=== PATIENT | male | born 1980 | race American Indian/Alaskan Native ===

== ENCOUNTER 2022-04-27 09:49 | Inpatient (IN) | payer SELFPAY ==
[2022-04-27 10:58] LABS: Hematocrit 43.1 % (35.5-45.6); Mean Corpuscular HGB Conc 33 % (32-34); Mean Corpuscular Volume 85 fl (84-94); Platelet Count 383 K/mm3 (140-440); Red Blood Count 5.08 M/mm3 (3.65-5.03); Red Cell Distribution Width 13.3 % (13.2-15.2)
[2022-04-27 11:09] LABS: INR 0.96 (0.87-1.13)
--- NOTE | 2022-04-27 11:22 | Emergency Department Report ---
ED Abdominal Pain HPI - General Chief Complaint: Abdominal Pain Stated Complaint: ABD PAIN Time Seen by Provider: 04/27/22 11:20 Source: patient, EMS ( EMS documentation not available at time of chart dictation ), RN notes reviewed Mode of arrival: Stretcher Limitations: No Limitations - History of Present Illness Initial Comments: The patient was evaluated in the emergency department for symptoms described in the history of present illness. He/she was evaluated in the context of the global COVID-19 pandemic, which necessitated consideration that the patient might be at risk for infection with the virus that causes COVID-19. Institutional protocols and algorithms that pertain to the evaluation of patients at risk for COVID-19 are in a state of rapid change based on information released by regulatory bodies including the CDC and federal and s morin organizations. These policies and algorithms were followed during the patient's care in the emergency department. Please note that these policies, procedures and recommendations changed on a rapid basis. The patient is a 41-year-old gentleman with a distant history of testicular torsion, presenting to the ER today with a complaint of right lower quadrant pain that radiates to the back, and right-sided testicular pain and swelling. He has been having constant pain since , today is Thursday. He endorses mild nausea, no fever, no chills, no dysuria. He endorses high risk sexual behavior, and endorses multiple sexual partners, over the past 6 months, without condoms, all female, with oral, vaginal, and anal intercourse. He does not recall where he was treated for testicular torsion previously. He does not recall specifically what year he had testicular torsion. He has constant right lower quadrant pain flank pain and right testicular pain for the past 2 to 3 days. Pain increases with palpation. Decreases with rest and position. Denies additional injuries and complaints MD Complaint: abdominal pain, flank pain -: days(s) Location: RLQ, R flank Radiation: back Severity: moderate Consistency: constant Improves With: rest Worsens With: movement - Related Data Allergies Allergy/AdvReac Type Severity Reaction Status Date / Time No Known Allergies Allergy Unverified 04/27/22 13:44 ED Review of Systems ROS: Stated complaint: ABD PAIN Other details as noted in HPI Comment: All other systems reviewed and negative Gastrointestinal: abdominal pain, nausea Genitourinary: testicular pain. denies: dysuria Musculoskeletal: back pain ED Physical Exam - General Limitations: No Limitations General appearance: alert, obese - Head Head exam: Present: atraumatic, normocephalic - Eye Eye exam: Present: normal appearance, EOMI. Absent: nystagmus - ENT ENT exam: Present: normal exam, normal orophraynx, mucous membranes moist, normal external ear exam - Neck Neck exam: Present: normal inspection, full ROM. Absent: tenderness, meni ngismus - Respiratory Respiratory exam: Present: normal lung sounds bilaterally. Absent: respiratory distress, wheezes, rales, rhonchi, stridor, decreased breath sounds - Cardiovascular Cardiovascular Exam: Present: regular rate, normal rhythm, normal heart sounds. Absent: bradycardia, tachycardia, irregular rhythm, systolic murmur, diastolic murmur, rubs, gallop - GI/Abdominal GI/Abdominal exam: Present: soft. Absent: distended, tenderness, guarding, rebound, rigid, pulsatile mass - Rectal Rectal exam: Present: deferred - exam: Present: testicular tenderness, other (Right-sided testicle swollen. Right-sided testicle tender. Decreased cremasteric reflex noted in the right testicle. Left testicle with normal lie, normal axis, and appropriate cremasteric reflex). Absent: normal inspection - Extremities Exam Extremities exam: Present: normal inspection, full ROM, other (2+ pulses noted in the bilateral upper and lower extremities. There is no palpable cord. negative Homans sign. Muscular compartments are soft. The pelvis is stable.). Absent: pedal edema, calf tenderness - Back Exam Back exam: Present: normal inspection. Absent: tenderness, CVA tenderness (R), CVA tenderness (L), paraspinal tenderness, vertebral tenderness - Neurological Exam Neurological exam: Present: alert, oriented X3, normal gait, other (No facial droop. Tongue midline. Extraocular movements intact bilaterally. Facial sensation intact to light touch in V1, V2, V3 distribution bilaterally. 5 and a 5 strength in 4 extremities. Sensation intact to light touch in 4 extremit ies.). Absent: motor sensory deficit - Psychiatric Psychiatric exam: Present: normal affect, normal mood, anxious - Skin Skin exam: Present: warm, dry, intact, normal color. Absent: rash ED Course Vital Signs 04/27/22 04/27/22 13:51 13:55 Temperature 99.2 F Pulse Rate 77 Respiratory 17 Rate Blood Pressure 149/75 [Left] O2 Sat by Pulse 98 96 Oximetry - Reevaluation(s) Reevaluation #1: 04/27/22 11:38 Differential diagnosis, include but not limited to: Renal colic, appendicitis, testicular torsion, epididymitis, orchitis Assessment and plan: 41-year-old gentleman with a primary complaint of right testicular pain, right lower quadrant pain/flank pain that radiates to the back. Suspect testicular p athology primarily. Patient presents on day [address] patient on cardiac rehabilitation specialist, start n.p.o., start pain medication, nausea medication, laboratory studies pending, white blood cell count of 21,000 may be reactive, stress, or infectious in nature. Obtain CT scan abdomen pelvis, obtain stat testicular ultrasound. Discussed this plan of care with the patient. He is agreeable to the plan of care. Reassess. Reevaluation #2: 04/27/22 13:26 CT scan abdomen pelvis demonstrates acute uncomplicated retrocecal appendicitis. As per verbal report from blood bank technologist, no evidence of torsion is noted, simply hydrocele. Contacted general surgeon on-call, Dr. Silveira. Discussed the patient's history, physical, laboratory studies and imaging studies and clinical impression. She will follow in consultation. Hospital physician, Dr. Bowen, to accept patient and admit to the medical service. I discussed this recommendation with the patient, who is agreeable to this plan of care. Reevaluation #3: 04/27/22 13:59 Ultrasound shows no evidence of torsion. Patient has received antibiotics. Cover with doxycycline. Defer to the inpatient team to further manage, evaluate and treat orchitis. If this patient did not have appendicitis, I would discharge him with oral antibiotics for orchitis with hydrocele. - EJ/Peripheral Line Arm R Time Out Performed: Yes Indications: other (Physician placed to expedite initiation of care) Skin Cleansed in Sterile Fashion: Yes Size: 20 Dressing Placed: Tegaderm Patient Tolerated Procedure: well ED Medical Decision Making - Lab Data Result diagrams: 04/27/22 10:21 04/27/22 10:21 Lab Results 04/27/22 04/27/22 04/27/22 Range/Units 10:21 10:21 10:21 WBC 21.0 H (4.5-11.0) K/mm3 RBC 5.08 H (3.65-5.03) M/mm3 Hgb 14.0 (11.8-15.2) gm/dl Hct 43.1 (35.5-45.6) % MCV 85 (84-94) fl MCH 28 (28-32) pg MCHC 33 (32-34) % RDW 13.3 (13.2-15.2) % Plt Count 383 (140-440) K/mm3 Add Manual Diff Complete Total Counted 100 Seg Neuts % (Manual) 79.0 H (40.0-70.0) % Band Neutrophils % 0 % Lymphocytes % (Manual) 11.0 L (13.4-35.0) % Reactive Lymphs % (Man) 0 % Monocytes % (Manual) 9.0 H (0.0-7.3) % Eosinophils % (Manual) 1.0 (0.0-4.3) % Basophils % (Manual) 0 (0.0-1.8) % Metamyelocytes % 0 % Myelocytes % 0 % Promyelocytes % 0 % Blast Cells % 0 % Nucleated RBC % Not Reportable Seg Neutrophils # Man 16.6 H (1.8-7.7) K/mm3 Band Neutrophils # 0.0 K/mm3 Lymphocytes # (Manual) 2.3 (1.2-5.4) K/mm3 Abs React Lymphs (Man) 0.0 K/mm3 Monocytes # (Manual) 1.9 H (0.0-0.8) K/mm3 Eosinophils # (Manual) 0.2 (0.0-0.4) K/mm3 Basophils # (Manual) 0.0 (0.0-0.1) K/mm3 Metamyelocytes # 0.0 K/mm3 Myelocytes # 0.0 K/mm3 Promyelocytes # 0.0 K/mm3 Blast Cells # 0.0 K/mm3 WBC Morphology Not Reportable Hypersegmented Neuts Not Reportable Hyposegmented Neuts Not Reportable Hypogranular Neuts Not Reportable Smudge Cells Not Reportable Toxic Granulation Not Reportable Toxic Vacuolation Not Reportable Dohle Bodies Not Reportable Pelger-Huet Anomaly Not Reportable Jarod Rods Not Reportable Platelet Estimate Consistent w auto Clumped Platelets Not Reportable Plt Clumps, EDTA Not Reportable Large Platelets Not Reportable Giant Platelets Not Reportable Platelet Satelliting Not Reportable Plt Morphology Comment Not Reportable RBC Morphology Normal Dimorphic RBCs Not Reportable Polychromasia Not Reportable Hypochromasia Not Reportable Poikilocytosis Not Reportable Anisocytosis Not Reportable Microcytosis Not Reportable Macrocytosis Not Reportable Spherocytes Not Reportable Pappenheimer Bodies Not Reportable Sickle Cells Not Reportable Target Cells Not Reportable Tear Drop Cells Not Reportable Ovalocytes Not Reportable Helmet Cells Not Reportable Ch-Rudolph Bodies Not Reportable [place] Rings Not Reportable [place] Cells Not Reportable Bite Cells Not Reportable Crenated Cell Not Reportable Elliptocytes Not Reportable Acanthocytes (Spur) Not Reportable Rouleaux Not Reportable Hemoglobin C Crystals Not Reportable Schistocytes Not Reportable Malaria parasites Not Reportable Cain Bodies Not Reportable Hem Pathologist Commnt No PT 13.8 (12.2-14.9) Sec. INR 0.96 (0.87-1.13) Sodium 137 (137-145) mmol/L Potassium 4.3 (3.6-5.0) mmol/L Chloride 101.5 (98-107) mmol/L Carbon Dioxide 25 (22-30) mmol/L Anion Gap 15 mmol/L BUN 10 (9-20) mg/dL Creatinine 1.0 (0.8-1.3) mg/dL Estimated GFR > 60 ml/min BUN/Creatinine Ratio 10 % Glucose 101 H (75-100) mg/dL Calcium 9.8 (8.4-10.2) mg/dL Total Bilirubin 0.70 (0.1-1.2) mg/dL Direct Bilirubin < 0.2 (0-0.2) mg/dL Indirect Bilirubin 0.5 mg/dL AST 15 (5-40) units/L ALT 31 (7-56) units/L Alkaline Phosphatase 62 (35-129) units/L Total Protein 9.3 H (6.3-8.2) g/dL Albumin 4.2 (3.9-5) g/dL Albumin/Globulin Ratio 0.8 % Lipase 25 (13-60) units/L Urine Color (Yellow) Urine Turbidity (Clear) Urine pH (5.0-7.0) Ur Specific [place] (1.003-1.030) Urine Protein (Negative) mg/dL Urine Glucose (UA) (Negative) mg/dL Urine Ketones (Negative) mg/dL Urine Blood (Negative) Urine Nitrite (Negative) Urine Bilirubin (Negative) Urine Urobilinogen (<2.0) mg/dL Ur Leukocyte Esterase (Negative) Urine WBC (Auto) (0.0-6.0) /HPF Urine RBC (Auto) (0.0-6.0) /HPF U Epithel Cells (Auto) (0-13.0) /HPF Urine Mucus /HPF 04/27/22 Range/Units Unknown WBC (4.5-11.0) K/mm3 RBC (3.65-5.03) M/mm3 Hgb (11.8-15.2) gm/dl Hct (35.5-45.6) % MCV (84-94) fl MCH (28-32) pg MCHC (32-34) % RDW (13.2-15.2) % Plt Count (140-440) K/mm3 Add Manual Diff Total Counted Seg Neuts % (Manual) (40.0-70.0) % Band Neutrophils % % Lymphocytes % (Manual) (13.4-35.0) % Reactive Lymphs % (Man) % Monocytes % (Manual) (0.0-7.3) % Eosinophils % (Manual) (0.0-4.3) % Basophils % (Manual) (0.0-1.8) % Metamyelocytes % % Myelocytes % % Promyelocytes % % Blast Cells % % Nucleated RBC % Seg Neutrophils # Man (1.8-7.7) K/mm3 Band Neutrophils # K/mm3 Lymphocytes # (Manual) (1.2-5.4) K/mm3 Abs React Lymphs (Man) K/mm3 Monocytes # (Manual) (0.0-0.8) K/mm3 Eosinophils # (Manual) (0.0-0.4) K/mm3 Basophils # (Manual) (0.0-0.1) K/mm3 Metamyelocytes # K/mm3 Myelocytes # K/mm3 Promyelocytes # K/mm3 Blast Cells # K/mm3 WBC Morphology Hypersegmented Neuts Hyposegmented Neuts Hypogranular Neuts Smudge Cells Toxic Granulation Toxic Vacuolation Dohle Bodies Pelger-Huet Anomaly Jarod Rods Platelet Estimate Clumped Platelets Plt Clumps, EDTA Large Platelets Giant Platelets Platelet Satelliting Plt Morphology Comment RBC Morphology Dimorphic RBCs Polychromasia Hypochromasia Poikilocytosis Anisocytosis Microcytosis Macrocytosis Spherocytes Pappenheimer Bodies Sickle Cells Target Cells Tear Drop Cells Ovalocytes Helmet Cells Ch-Rudolph Bodies [place] Rings [place] Cells Bite Cells Crenated Cell Elliptocytes Acanthocytes (Spur) Rouleaux Hemoglobin C Crystals Schistocytes Malaria parasites Cain Bodies Hem Pathologist Commnt PT (12.2-14.9) Sec. INR (0.87-1.13) Sodium (137-145) mmol/L Potassium (3.6-5.0) mmol/L Chloride (98-107) mmol/L Carbon Dioxide (22-30) mmol/L Anion Gap mmol/L BUN (9-20) mg/dL Creatinine (0.8-1.3) mg/dL Estimated GFR ml/min BUN/Creatinine Ratio % Glucose (75-100) mg/dL Calcium (8.4-10.2) mg/dL Total Bilirubin (0.1-1.2) mg/dL Direct Bilirubin (0-0.2) mg/dL Indirect Bilirubin mg/dL AST (5-40) units/L ALT (7-56) units/L Alkaline Phosphatase (35-129) units/L Total Protein (6.3-8.2) g/dL Albumin (3.9-5) g/dL Albumin/Globulin Ratio % Lipase (13-60) units/L Urine Color Yellow (Yellow) Urine Turbidity Clear (Clear) Urine pH 8.0 H (5.0-7.0) Ur Specific [place] 1.021 (1.003-1.030) Urine Protein <15 mg/dl (Negative) mg/dL Urine Glucose (UA) Neg (Negative) mg/dL Urine Ketones Neg (Negative) mg/dL Urine Blood Neg (Negative) Urine Nitrite Neg (Negative) Urine Bilirubin Neg (Negative) Urine Urobilinogen < 2.0 (<2.0) mg/dL Ur Leukocyte Esterase Sm (Negative) Urine WBC (Auto) 29.0 H (0.0-6.0) /HPF Urine RBC (Auto) 6.0 (0.0-6.0) /HPF U Epithel Cells (Auto) 1.0 (0-13.0) /HPF Urine Mucus Few /HPF - Radiology Data Radiology results: pending, report reviewed, image reviewed CT ABDOMEN AND PELVIS WITH CONTRAST HISTORY: Acute right-sided abdominal pain. Pain for the past 2 days, history of testicular torsion COMPARISON: CT abdomen/pelvis and testicular ultrasound both from 06/14/2011 TECHNIQUE: CT images of the abdomen and pelvis were obtained following administration of intravenous contrast. All CT scans at this location are performed using CT dose reduction for ALARA by means of automated exposure control. CONTRAST: 100 ml of intravenous contrast administered. FINDINGS: Lungs/bones: Lung bases are clear. No acute osseous abnormality identified. Abdomen/pelvis: The liver is mildly enlarged with no focal mass. The gallbladder, spleen, pancreas, adrenals, kidneys, and proximal GI tract appear unremarkable. Prostate and urinary bladder unremarkable with no pelvic free fluid. No acute colonic abnormality identified. There is a retrocecal tubular structure which is fluid-filled and measures approximately 1.3 cm on image 123 of series 2. No significant surrounding stranding. There is mild mucosal enhancement. IMPRESSION: 1. Acute uncomplicated retrocecal appendicitis. Signer Name: Jeffrey Stroud MD Signed: 04/27/2022 11:35 AM Workstation Name: [facility] Scrotal Ultrasound HISTORY: right sided testicular pain hx of torsion. TECHNI QUE: Grayscale and color imaging performed. COMPARISON: None FINDINGS: Right testicle measures 2.9 x 2.6 x 4.1 cm and the left measures 4.5 x 2.3 x 3.4 cm. Normal testicular appearance with blood flow bilaterally, although there is hyperemia on the right. There is a moderate size hydrocele on the right. No hydrocele on the left. Each epididymis is normal with preserved blood flow. IMPRESSION: Right-sided testicular hyperemia may be seen with orchitis with moderate-sized reactive hydrocele. Signer Name: Jeffrey Stroud MD Signed: 04/27/2022 12:37 PM Workstation Name: [id number] Critical care attestation.: If time is entered above; I have spent that time in minutes in the direct care of this critically ill patient, excluding procedure time. ED Disposition Clinical Impression: Right lower quadrant abdominal pain, Right testicular pain, Acute appendicitis Disposition: 09 ADMITTED INPATIENT Is pt being admited?: Yes Does the pt Need Aspirin: No Condition: Good
[2022-04-27 11:49] LABS: Alanine Aminotransferase 31 units/L (7-56); Albumin 4.2 g/dL (3.9-5); BUN/Creatinine Ratio 10; Blood Urea Nitrogen 10 mg/dL (9-20); Calcium 9.8 mg/dL (8.4-10.2); Hemolysis Index 0
[2022-04-27 11:57] LABS: Bilirubin,Direct < 0.2 mg/dL (0-0.2)
[2022-04-27 12:17] LABS: Bilirubin,Urine NEG (Negative); Blood,Urine NEG (Negative); Color,Urine Yellow (Yellow); Mucus,Urine FEW /HPF; Protein,Urine <15 mg/dL mg/dL (Negative); Urobilinogen,Urine < 2.0 mg/dL (<2.0)
[2022-04-27 12:18] LABS: Basophils % (Manual) 0 % (0.0-1.8); Platelet Estimate Consistent w Auto; RBC Morphology Normal; Total Cells Counted 100
--- NOTE | 2022-04-27 12:39 | Cat Scan Report ---
CT ABDOMEN AND PELVIS WITH CONTRAST HISTORY: Acute right-sided abdominal pain. Pain for the past 2 days, history of testicular torsion COMPARISON: CT abdomen/pelvis and testicular ultrasound both from 06/14/2011 TECHNIQUE: CT images of the abdomen and pelvis were obtained following administration of intravenous contrast. All CT scans at this location are performed using CT dose reduction for ALARA by means of automated exposure control. CONTRAST: 100 ml of intravenous contrast administered. FINDINGS: Lungs/bones: Lung bases are clear. No acute osseous abnormality identified. Abdomen/pelvis: The liver is mildly enlarged with no focal mass. The gallbladder, spleen, pancreas, adrenals, kidneys, and proximal GI tract appear unremarkable. Prostate and urinary bladder unremarkable with no pelvic free fluid. No acute colonic abnormality pratik ntified. There is a retrocecal tubular structure which is fluid-filled and measures approximately 1.3 cm on image 123 of series 2. No significant surrounding stranding. There is mild mucosal enhancement . IMPRESSION: 1. Acute uncomplicated retrocecal appendicitis. Signer Name: Jeffrey Stroud MD Signed: 04/27/2022 12:35 PM Workstation Name: [id number]
[2022-04-27] MEDS ORDERED: oxyCODONE /ACETAMINOPHEN 5-325MG TAB PO PRN (13:37)
[2022-04-27] MEDS ORDERED: ALBUTEROL 2.5 MG/3 ML NEBU IH PRN (13:37)
[2022-04-27] MEDS ORDERED: ACETAMINOPHEN 325 MG TAB PO PRN ×3 (13:37→20:24)
--- NOTE | 2022-04-27 13:37 | History and Physical Report ---
History of Present Illness Chief complaint: My stomach has been hurting History of present illness: 41 YO Male with Obesity Hypoventilation Syndrome presents to ED for evaluation. Patient reports "my stomach has been hurting". Patient states that over the past 4 days he has experienced right-sided abdominal pain. Patient states that the pain is constant, progressively worsening, radiates to the back into the right testicle, 7/10, worsened with movement, relieved with nonmovement. EMS was notified and upon arrival the patient was found to be in distress and subsequently transported to [facility] for further care and evaluation of the aforementioned symptoms. The patient was seen and evaluated in the emergency department. All lab and imaging studies reviewed. Patient with CT scan of the abdomen and pelvis and was found to have acute appendicitis complicated by sepsis. Patient admitted to medical floor due to increased risk of worsening symptoms. Patient initiated on sepsis protocol. Surgical team consulted in ED. Patient taken urgently to the operating room. Patient denies fever, chills, chest pain, palpitation, adductive cough, skin rash, recent contact, known exposure to COVID-19. No prior admission for review. No medication listed at time of admission for reconciliation. Advanced care planning conducted in ED. Past History Past Medical History: other (See HPI) Past Surgical History: No surgical history, Other (Reviewed) Social history: single. denies: smoking, alcohol abuse, prescription drug abuse Family history: hypertension Medications and Allergies Allergies Allergy/AdvReac Type Severity Reaction Status Date / Time No Known Allergies Allergy Unverified 04/27/22 13:44 Active Meds: Active Medications Sodium Chloride (Nacl 0.9% 1000 Ml) 1,000 mls @ 999 mls/hr IV BOLUS ONE Stop: 04/27/22 12:20 Piperacillin Sod/Tazobactam Sod (Zosyn/Ns 4.5gm/100ml) 4.5 gm in 100 mls @ 200 mls/hr IV ONCE ONE; Protocol Stop: 04/27/22 13:13 Morphine Sulfate (Morphine 4 Mg/1 Ml Inj) 4 mg IV ONCE ONE Stop: 04/27/22 11:21 Ondansetron HCl (Ondansetron 4 Mg/2 Ml Inj) 4 mg IV ONCE ONE Stop: 04/27/22 11:21 Review of Systems Constitutional: no weight loss, no weight gain, no fever, no sweats Ears, nose, mouth and throat: no ear pain, no tinnitis, no nasal congestion, no sinus pressure Cardiovascular: no chest pain, no palpitations, no edema, no syncope Respiratory: no cough, no excessive sputum, no hemoptysis, no shortness of breath Gastrointestinal: abdominal pain Exam - Constitutional General appearance: Present: mild distress, obese - EENT Eyes: Present: PERRL ENT: hearing intact, clear oral mucosa - Neck Neck: Present: supple, normal ROM - Respiratory Respiratory effort: normal Respiratory: bilateral: CTA - Cardiovascular Heart Sounds: Present: S1 & S2. Absent: rub, click - Extremities Extremities: pulses symmetrical, No edema Peripheral Pulses: abnormal (Capillary refill greater than 3.5 seconds) - Abdominal General gastrointestinal: Present: soft, tender, non-distended, normal bowel sounds Localized gastrointestinal: tender: RLQ Male genitourinary: Present: scrotal edema - Integumentary Integumentary: Present: clear, warm, dry - Musculoskeletal Musculoskeletal: gait normal, strength equal bilaterally - Psychiatric Psychiatric: appropriate mood/affect, intact judgment & insight - Neurologic Neurologic: CNII-XII intact, moves all extremities Results - Labs CBC & Chem 7: 04/27/22 10:21 04/27/22 10:21 Labs: Abnormal lab results 04/27/22 04/27/22 04/27/22 Range/Units 10:21 10:21 Unknown WBC 21.0 H (4.5-11.0) K/mm3 RBC 5.08 H (3.65-5.03) M/mm3 Seg Neuts % (Manual) 79.0 H (40.0-70.0) % Lymphocytes % (Manual) 11.0 L (13.4-35.0) % Monocytes % (Manual) 9.0 H (0.0-7.3) % Seg Neutrophils # Man 16.6 H (1.8-7.7) K/mm3 Monocytes # (Manual) 1.9 H (0.0-0.8) K/mm3 Glucose 101 H (75-100) mg/dL Total Protein 9.3 H (6.3-8.2) g/dL Urine pH 8.0 H (5.0-7.0) Urine WBC (Auto) 29.0 H (0.0-6.0) /HPF Assessment and Plan - Patient Problems (1) Acute appendicitis Current Visit: Yes Status: Acute Plan to address problem: CT scan abdomen pelvis, serial abdominal exam, IV antibiotic therapy, surgery team consulted. Patient taken urgently to the operating room for surgical intervention. N.p.o., bowel rest, supportive care, pain control. (2) Sepsis Current Visit: Yes Status: Acute Plan to address problem: Sepsis protocol: IV fluid resuscitation therapy, IV antibiotic therapy, monitor urine output every shift, monitor fluid balance, serial lactic acid level, chest x-ray, urinalysis, IV antibiotic therapy. (3) Obesity hypoventilation syndrome Current Visit: Yes Status: Acute Plan to address problem: Balanced diet, increase physical activity discharge, outpatient pulmonary follow-up for sleep study. (4) DVT prophylaxis Current Visit: Yes Status: Acute Plan to address problem: SCD to bilateral lower extremities while in bed (5) Right testicular pain Current Visit: Yes Status: Acute Plan to address problem: Empiric IV antibiotic therapy for orchitis, supportive care, testicular ultrasound. (6) Advance care planning Current Visit: Yes Status: Acute Plan to address problem: Disease education conducted, care plan discussed, diagnoses discussed, prognosis discussed, patient is full code. Patient acknowledges understanding and agreement with care plan, +30 minutes. (7) Preventative health care Current Visit: Yes Status: Acute Plan to address problem: Patient counseled regarding balanced diet, increase physical activity at discharge, meal planning. Outpatient follow-up with primary care physician for all age and risk factor of appropriate screening test. Patient counseled regarding risk of HIV disease and infection. Patient counseled regarding safe sex practices. +30 minutes.
--- NOTE | 2022-04-27 13:41 | Ultrasound Report ---
Scrotal Ultrasound HISTORY: right sided testicular pain hx of torsion. TECHNIQUE: Grayscale and color imaging performed. COMPARISON: None FINDINGS: Right testicle measures 2.9 x 2.6 x 4.1 cm and the left measures 4.5 x 2.3 x 3.4 cm. Normal testicular appearance with blood flow bilaterally, although there is hyperemia on the right. There i s a moderate size hydrocele on the right. No hydrocele on the left. Each epididymis is normal with pr eserved blood flow. IMPRESSION: Right-sided testicular hyperemia may be seen with orchitis with moderate-sized reactive h ydrocele. Signer Name: Jeffrey Stroud MD Signed: 04/27/2022 1:37 PM Workstation Name: [id number]
[2022-04-27] MEDS ORDERED: HYDROmorphone 0.5 MG/0.5 ML INJ IV PRN ×3 (13:54→20:24)
[2022-04-27] MEDS ORDERED: MORPHINE 2 MG/1 ML INJ IV PRN (13:55)
[2022-04-27] MEDS ORDERED: DOXYCYCLINE 100 MG CAP PO ONE (13:58)
[2022-04-27] MEDS ORDERED: PIPERACIL/TAZOBACTA 4.5/NS 100 4.5 GM/100 ML VIAL IV ONE (14:00)
[2022-04-27] MEDS ORDERED: SODIUM CHLORIDE 0.9% 1000 ML 1,000 ML IV ONE (14:00)
[2022-04-27] MEDS ORDERED: MORPHINE 4 MG/1 ML INJ IV ONE (14:00)
[2022-04-27] MEDS ORDERED: ONDANSETRON 4 MG/2 ML INJ IV ONE (14:00)
[2022-04-27] MEDS: CEFEPIME/NS 2 GM/100 ML 2 GM/100 ML BAG IV SCH ×2 (14:24→21:09)
[2022-04-27] MEDS ORDERED: HYDROmorphone 1 MG/1 ML INJ ONE (14:46)
[2022-04-27] MEDS ORDERED: LIDOCAINE MPF (2%) 20 MG/1 ML VIAL 5 ML ONE (14:47)
[2022-04-27] MEDS ORDERED: propofoL 200 MG/20 ML VIAL IV ONE (14:47)
[2022-04-27] MEDS ORDERED: ROCURONIUM 50 MG/5 ML INJ IV ONE ×2 (14:49→15:40)
[2022-04-27] MEDS ORDERED: BUPIVACAINE/PF (0.5%) 5 MG/1 ML 30 ML VIAL INFILTRATI ONE ×2 (14:54→16:17)
[2022-04-27] MEDS ORDERED: LIDOCAINE (1%) 10 MG/1 ML VIAL 20 ML MDV ONE (14:54)
[2022-04-27] MEDS ORDERED: SODIUM CHLORIDE 0.9% 1000 ML IV SOLN IV ONE (15:00)
--- NOTE | 2022-04-27 15:09 | Anesthesia Day of Surgery ---
Anesthesia Day of Surgery - Day of Surgery Patient Examined: Yes Patient H&P Reviewed: Yes Patient is NPO: Yes
--- NOTE | 2022-04-27 15:09 | Anesthesia Consultation ---
Anesthesia Consult and Med Hx Date of service: 04/27/22 - Airway Anesthetic Teeth Evaluation: Good, Partials ROM Head & Neck: Adequate Mental/Hyoid Distance: Adequate Mallampati Class: Class III Intubation Access Assessment: Possibly Difficult - Pre-Operative Health Status ASA Pre-Surgery Classification: ASA2 Proposed Anesthetic Plan: General - Pulmonary Hx Respiratory Symptoms: No - Cardiovascular System Hx Hypertension: No (BP elevated in ED but no prior diagnosis or meds) - Endocrine Hx Renal Disease: No Hx Liver Disease: No Hx Insulin Dependent Diabetes: No Hx Thyroid Disease: No - Other Systems Hx Obesity: Yes (BMI 35) - Additional Comments Anesthesia Medical History Comments: No hx anesthetic complications.
[2022-04-27] MEDS ORDERED: ONDANSETRON 4 MG/2 ML INJ ONE (16:16)
[2022-04-27] MEDS ORDERED: NEOSTIGMINE 10MG/10 ML INJ MDV ONE (16:16)
[2022-04-27] MEDS ORDERED: KETOROLAC 30 MG/1 ML INJ ONE (16:16)
[2022-04-27] MEDS ORDERED: LIDOCAINE (1%) 10 MG/1 ML VIAL 20 ML MDV INFILTRATI ONE (16:17)
[2022-04-27] MEDS ORDERED: GLYCOPYRROLATE 0.4 MG/2 ML INJ ONE ×2 (16:17→16:24)
[2022-04-27] MEDS ORDERED: WATER FOR IRRIG STERILE 1,500 ML BOTTLE IR ONE (16:18)
--- NOTE | 2022-04-27 17:10 | Post Anesthesia Evaluation ---
- Post Anesthesia Evaluation Patient Participated: Yes Airway Patent: Yes Stable Respiratory Function: Yes Nausea/Vomiting: No Temp > 96.8F: Yes Pain Manageable: Yes Adequeate Hydration: Yes Anesthesia Complications: No
[2022-04-27] MEDS ORDERED: SODIUM CHLORIDE 0.9% 1000 ML 1,000 ML ONE (17:12)
--- NOTE | 2022-04-27 17:30 | Operative Report ---
Operative Report Operative Report: Date of Service: 04/27/2022 Primary Surgeon: Asa Silveira MD Procedure: Laparoscopic Appendectomy Anesthesia: GETA Pre-Operative Diagnosis: acute appendicitis Post-Operative Diagnosis: Same Indications for Procedure: 41-year-old male presents to the emergency room with 2 days of right lower quadrant pain with nausea and vomiting. Patient is CT scan that showed uncomplicated acute appendicitis. Patient signed informed consent for laparoscopic appendectomy. Description of Procedure(s): The patient was brought to the operating room and underwent general anesthesia after lower extremity SCD were placed. A benedict catheter was inserted under sterile conditions and the left arm was tucked gently at their side. The abdomen was prepped and draped in the standard fashion. IV antibiotics were given and a time out was performed. Using a veress needle via a stab incision in the umbilicus, the abdomen was insuflated to a pressure of 15mmHg. Using optivew technique, a 5mm trocar was placed just superior and to the left of the umbilicus. There was no gross injury noted to any intra-abdominal structures. After which working trocars were placed under direct visualization. A 12 mm trocar was placed in left mid abdomen, and a 5 mm trocar was inserted in the suprapubic area. The patient was placed in slight Trendelenburg position and tilted towards her left side. The cecum was identified and mobilized, as well as the terminal ileum. There was no gross purulent fluid. The appendix was noted to be retrocecal. The mesoappendix was transected with the LigaSure. The appendix was then taken at its base with a white load on a laparoscopic stapler. The staple line was inspected and found to be hemostatically sound and secure. The appendix was placed in Endo Catch bag. It was then retrieved via the 12 mm trocar. The fascia was then closed using a O-vicryl and a suture passer device. Trocars removed under direct visualization. The insufflation was then terminated. The skin incisions were closed using 4-0 Monocryl sutures. All the wounds dressed with dermabond. The patient tolerated the procedure well, was extubated and taken to the recovery room in satisfactory condition. Specimen: appendix Complications: none immediate EBl: <10ml Findings: Retrocecal appendix that was minimally inflamed.
--- NOTE | 2022-04-27 17:32 | Consultation ---
History of Present Illness Consult date: 04/27/22 Reason for consult: abdominal pain - History of present illness History of present illness: 5-year-old male presents to the emergency room with a 2-day history of right lower quadrant pain with nausea and vomiting. Patient says that he had a similar pain several years ago and was diagnosed with testicular torsion however that was ruled out with ultrasound. Patient is CT scan with findings consistent with uncomplicated acute appendicitis. Patient says his pain is 8 out of 10 and is radiating to his right groin and right back as well. Past History Past Medical History: other (testicular torsion) Past Surgical History: Other (bilateral hand surgery for traumatic events) Family history: no significant family history Medications and Allergies Allergies Allergy/AdvReac Type Severity Reaction Status Date / Time No Known Allergies Allergy Unverified 04/27/22 13:44 Active Meds: Active Medications Acetaminophen (Acetaminophen 325 Mg Tab) 650 mg PO Q4H PRN PRN Reason: Pain MILD(1-3)/Fever >100.5/SMITH Albuterol (Albuterol 2.5 Mg/3 Ml Nebu) 2.5 mg IH Q4H PRN PRN Reason: Shortness Of Breath Hydromorphone HCl (Hydromorphone 0.5 Mg/0.5 Ml Inj) 0.25 mg IV Q4H PRN PRN Reason: Pain, Severe (7-10) Hydromorphone HCl (Hydromorphone 0.5 Mg/0.5 Ml Inj) 0.5 mg IV Q10MIN PRN PRN Reason: Pain , Severe (7-10) Stop: 04/28/22 15:09 Cefepime HCl (Cefepime/Ns 2 Gm/100 Ml) 2 gm in 100 mls @ 200 mls/hr IV Q8H [facility]; Protocol Last Admin: 04/27/22 14:24 Dose: 200 mls/hr Morphine Sulfate (Morphine 2 Mg/1 Ml Inj) 2 mg IV Q4H PRN PRN Reason: Pain, Moderate (4-6) Ondansetron HCl (Ondansetron 4 Mg/2 Ml Inj) 4 mg IV Q8H PRN PRN Reason: Nausea And Vomiting Oxycodone/Acetaminophen (Oxycodone /Acetaminophen 5-325mg Tab) 1 tab PO Q6H PRN PRN Reason: Pain, Moderate (4-6) Sodium Chloride (Sodium Chloride 0.9% 10 Ml Flush Syringe) 10 ml IV BID ALEJANDRINA Sodium Chloride (Sodium Chloride 0.9% 10 Ml Flush Syringe) 10 ml IV PRN PRN PRN Reason: LINE FLUSH Review of Systems All systems: negative - Gastrointestinal abdominal pain, nausea, vomiting Exam Vital Signs Pulse Ox 98 04/27/22 13:51 - General physical appearance Positive: well developed, no distress, moderate pain - Eyes Positive: PERRL. Negative: icteric - ENT Positive: no hearing loss - Respiratory Positive: normal expansion, normal respiratory effort - Cardiovascular Heart Sounds: Present: S1 & S2 - Extremities Extremities: no ischemia - Abdomen Abdomen: Present: soft, other (Tender to deep palpation right lower quadrant). Absent: guarding, rigid Results - Labs 04/27/22 10:21 04/27/22 10:21 Abnormal lab results 04/27/22 04/27/22 04/27/22 Range/Units 10:21 10:21 Unknown WBC 21.0 H (4.5-11.0) K/mm3 RBC 5.08 H (3.65-5.03) M/mm3 Seg Neuts % (Manual) 79.0 H (40.0-70.0) % Lymphocytes % (Manual) 11.0 L (13.4-35.0) % Monocytes % (Manual) 9.0 H (0.0-7.3) % Seg Neutrophils # Man 16.6 H (1.8-7.7) K/mm3 Monocytes # (Manual) 1.9 H (0.0-0.8) K/mm3 Glucose 101 H (75-100) mg/dL Total Protein 9.3 H (6.3-8.2) g/dL Urine pH 8.0 H (5.0-7.0) Urine WBC (Auto) 29.0 H (0.0-6.0) /HPF Diabetes panel 04/27/22 Range/Units 10:21 Sodium 137 (137-145) mmol/L Potassium 4.3 (3.6-5.0) mmol/L Chloride 101.5 (98-107) mmol/L Carbon Dioxide 25 (22-30) mmol/L BUN 10 (9-20) mg/dL Creatinine 1.0 (0.8-1.3) mg/dL Glucose 101 H (75-100) mg/dL Calcium 9.8 (8.4-10.2) mg/dL AST 15 (5-40) units/L ALT 31 (7-56) units/L Alkaline Phosphatase 62 (35-129) units/L Total Protein 9.3 H (6.3-8.2) g/dL Albumin 4.2 (3.9-5) g/dL Calcium panel 04/27/22 Range/Units 10:21 Calcium 9.8 (8.4-10.2) mg/dL Albumin 4.2 (3.9-5) g/dL Pituitary panel 04/27/22 Range/Units 10:21 Sodium 137 (137-145) mmol/L Potassium 4.3 (3.6-5.0) mmol/L Chloride 101.5 (98-107) mmol/L Carbon Dioxide 25 (22-30) mmol/L BUN 10 (9-20) mg/dL Creatinine 1.0 (0.8-1.3) mg/dL Glucose 101 H (75-100) mg/dL Calcium 9.8 (8.4-10.2) mg/dL Adrenal panel 04/27/22 Range/Units 10:21 Sodium 137 (137-145) mmol/L Potassium 4.3 (3.6-5.0) mmol/L Chloride 101.5 (98-107) mmol/L Carbon Dioxide 25 (22-30) mmol/L BUN 10 (9-20) mg/dL Creatinine 1.0 (0.8-1.3) mg/dL Glucose 101 H (75-100) mg/dL Calcium 9.8 (8.4-10.2) mg/dL Total Bilirubin 0.70 (0.1-1.2) mg/dL AST 15 (5-40) units/L ALT 31 (7-56) units/L Alkaline Phosphatase 62 (35-129) units/L Total Protein 9.3 H (6.3-8.2) g/dL Albumin 4.2 (3.9-5) g/dL - Imaging CT scan - abdomen: report reviewed, image reviewed CT scan - pelvis: report reviewed, image reviewed Assessment and Plan 41-year-old male with right lower quadrant pain nausea and vomiting with work-up consistent with acute appendicitis. Patient is afebrile and stable with a white count of 21. Patient's pathology and both surgical and nonsurgical options were discussed with him. Patient expressed understanding and consented for laparoscopic appendectomy. Continue antibiotics and IV hydration.
[2022-04-27] MEDS ORDERED: ONDANSETRON 4 MG/2 ML INJ IV PRN (18:00)
[2022-04-27] MEDS: KETOROLAC 30 MG/1 ML INJ IV SCH (21:08)
[2022-04-28] MEDS: KETOROLAC 30 MG/1 ML INJ IV SCH ×4 (02:55→20:52)
[2022-04-28] MEDS: CEFEPIME/NS 2 GM/100 ML 2 GM/100 ML BAG IV SCH ×3 (05:12→22:34)
[2022-04-28 07:16] LABS: BUN/Creatinine Ratio 10; Blood Urea Nitrogen 12 mg/dL (9-20); Calcium 8.6 mg/dL (8.4-10.2); Hemolysis Index 4
[2022-04-28 07:18] LABS: Basophils # (Auto) 0.1 K/mm3 (0.0-0.1); Basophils % (Auto) 0.4 % (0.0-1.8); Eosinophils # (Auto) 0.1 K/mm3 (0.0-0.4); Eosinophils % (Auto) 1.1 % (0.0-4.3); Hematocrit 35.2 % (35.5-45.6); Hemoglobin 11.4 gm/dl (11.8-15.2); Lymphocytes # (Auto) 1.7 K/mm3 (1.2-5.4); Lymphocytes % (Auto) 13.3 % (13.4-35.0); Mean Corpuscular HGB Conc 33 % (32-34); Mean Corpuscular Volume 85 fl (84-94); Monocytes # (Auto) 0.7 K/mm3 (0.0-0.8); Monocytes % (Auto) 5.7 % (0.0-7.3); Platelet Count 296 K/mm3 (140-440); Red Blood Count 4.12 M/mm3 (3.65-5.03); Red Cell Distribution Width 13.1 % (13.2-15.2)
--- NOTE | 2022-04-28 12:05 | Progress Note ---
Assessment and Plan Assessment and plan: 41-year-old male presented to the emergency room with a 2-day history of right lower quadrant pain with nausea and vomiting. Patient's CT scan revealed uncomplicated acute appendicitis. The patient was admitted with diagnosis of sepsis and appendicitis. Sepsis. Patient meets criteria given leukocytosis, tachycardia and diagnosis of appendicitis Appendicitis 04/28/2022. Patient underwent laparoscopic appendectomy yesterday without complication. Patient has received IV antibiotics since admission. Initial blood cultures are negative. Patient reports having flatus but no bowel movement yet. Patient is tolerating clear liquid diet. Patient is attempting to ambulate in the room. Anticipate discharge later today or in a.m. History Interval history: No new issues overnight Hospitalist Physical - Constitutional Vitals: Temp Pulse Resp BP Pulse Ox 98.1 F 66 18 105/60 99 04/28/22 05:15 04/28/22 05:15 04/28/22 05:15 04/28/22 05:15 04/28/22 05:15 General appearance: Present: no acute distress, obese - EENT Eyes: Present: PERRL, EOM intact ENT: hearing intact, clear oral mucosa, dentition normal - Neck Neck: Present: supple, normal ROM - Respiratory Respiratory effort: normal Respiratory: bilateral: CTA - Cardiovascular Rhythm: regular Heart Sounds: Present: S1 & S2. Absent: gallop, rub - Extremities Extremities: no ischemia, No edema, Full ROM - Abdominal General gastrointestinal: soft, non-tender, non-distended, normal bowel sounds - Integumentary Integumentary: Present: clear, warm, dry - Neurologic Neurologic: CNII-XII intact, moves all extremities Results - Labs CBC & Chem 7: 04/28/22 06:40 04/28/22 06:40 Labs: Laboratory Last Values WBC 13.0 K/mm3 (4.5-11.0) H 04/28/22 06:40 RBC 4.12 M/mm3 (3.65-5.03) 04/28/22 06:40 Hgb 11.4 gm/dl (11.8-15.2) L 04/28/22 06:40 Hct 35.2 % (35.5-45.6) L D 04/28/22 06:40 MCV 85 fl (84-94) 04/28/22 06:40 MCH 28 pg (28-32) 04/28/22 06:40 MCHC 33 % (32-34) 04/28/22 06:40 RDW 13.1 % (13.2-15.2) L 04/28/22 06:40 Plt Count 296 K/mm3 (140-440) 04/28/22 06:40 Lymph % (Auto) 13.3 % (13.4-35.0) L 04/28/22 06:40 [place] % (Auto) 5.7 % (0.0-7.3) 04/28/22 06:40 Eos % (Auto) 1.1 % (0.0-4.3) 04/28/22 06:40 Baso % (Auto) 0.4 % (0.0-1.8) 04/28/22 06:40 Lymph # (Auto) 1.7 K/mm3 (1.2-5.4) 04/28/22 06:40 [place] # (Auto) 0.7 K/mm3 (0.0-0.8) 04/28/22 06:40 Eos # (Auto) 0.1 K/mm3 (0.0-0.4) 04/28/22 06:40 Baso # (Auto) 0.1 K/mm3 (0.0-0.1) 04/28/22 06:40 Add Manual Diff Complete 04/27/22 10:21 Total Counted 100 04/27/22 10:21 Seg Neutrophils % 79.5 % (40.0-70.0) H 04/28/22 06:40 Seg Neuts % (Manual) 79.0 % (40.0-70.0) H 04/27/22 10:21 Band Neutrophils % 0 % 04/27/22 10:21 Lymphocytes % (Manual) 11.0 % (13.4-35.0) L 04/27/22 10:21 Reactive Lymphs % (Man) 0 % 04/27/22 10:21 Monocytes % (Manual) 9.0 % (0.0-7.3) H 04/27/22 10:21 Eosinophils % (Manual) 1.0 % (0.0-4.3) 04/27/22 10:21 Basophils % (Manual) 0 % (0.0-1.8) 04/27/22 10:21 Metamyelocytes % 0 % 04/27/22 10:21 Myelocytes % 0 % 04/27/22 10:21 Promyelocytes % 0 % 04/27/22 10:21 Blast Cells % 0 % 04/27/22 10:21 Nucleated RBC % Not Reportable 04/27/22 10:21 Seg Neutrophils # 10.4 K/mm3 (1.8-7.7) H 04/28/22 06:40 Seg Neutrophils # Man 16.6 K/mm3 (1.8-7.7) H 04/27/22 10:21 Band Neutrophils # 0.0 K/mm3 04/27/22 10:21 Lymphocytes # (Manual) 2.3 K/mm3 (1.2-5.4) 04/27/22 10:21 Abs React Lymphs (Man) 0.0 K/mm3 04/27/22 10:21 Monocytes # (Manual) 1.9 K/mm3 (0.0-0.8) H 04/27/22 10:21 Eosinophils # (Manual) 0.2 K/mm3 (0.0-0.4) 04/27/22 10:21 Basophils # (Manual) 0.0 K/mm3 (0.0-0.1) 04/27/22 10:21 Metamyelocytes # 0.0 K/mm3 04/27/22 10:21 Myelocytes # 0.0 K/mm3 04/27/22 10:21 Promyelocytes # 0.0 K/mm3 04/27/22 10:21 Blast Cells # 0.0 K/mm3 04/27/22 10:21 WBC Morphology Not Reportable 04/27/22 10:21 Hypersegmented Neuts Not Reportable 04/27/22 10:21 Hyposegmented Neuts Not Reportable 04/27/22 10:21 Hypogranular Neuts Not Reportable 04/27/22 10:21 Smudge Cells Not Reportable 04/27/22 10:21 Toxic Granulation Not Reportable 04/27/22 10:21 Toxic Vacuolation Not Reportable 04/27/22 10:21 Dohle Bodies Not Reportable 04/27/22 10:21 Pelger-Huet Anomaly Not Reportable 04/27/22 10:21 Jarod Rods Not Reportable 04/27/22 10:21 Platelet Estimate Consistent w auto 04/27/22 10:21 Clumped Platelets Not Reportable 04/27/22 10:21 Plt Clumps, EDTA Not Reportable 04/27/22 10:21 Large Platelets Not Reportable 04/27/22 10:21 Giant Platelets Not Reportable 04/27/22 10:21 Platelet Satelliting Not Reportable 04/27/22 10:21 Plt Morphology Comment Not Reportable 04/27/22 10:21 RBC Morphology Normal 04/27/22 10:21 Dimorphic RBCs Not Reportable 04/27/22 10:21 Polychromasia Not Reportable 04/27/22 10:21 Hypochromasia Not Reportable 04/27/22 10:21 Poikilocytosis Not Reportable 04/27/22 10:21 Anisocytosis Not Reportable 04/27/22 10:21 Microcytosis Not Reportable 04/27/22 10:21 Macrocytosis Not Reportable 04/27/22 10:21 Spherocytes Not Reportable 04/27/22 10:21 Pappenheimer Bodies Not Reportable 04/27/22 10:21 Sickle Cells Not Reportable 04/27/22 10:21 Target Cells Not Reportable 04/27/22 10:21 Tear Drop Cells Not Reportable 04/27/22 10:21 Ovalocytes Not Reportable 04/27/22 10:21 Helmet Cells Not Reportable 04/27/22 10:21 Ch-[place] Bodies Not Reportable 04/27/22 10:21 [place] Rings Not Reportable 04/27/22 10:21 Jayson Cells Not Reportable 04/27/22 10:21 Bite Cells Not Reportable 04/27/22 10:21 Crenated Cell Not Reportable 04/27/22 10:21 Elliptocytes Not Reportable 04/27/22 10:21 Acanthocytes (Spur) Not Reportable 04/27/22 10:21 Rouleaux Not Reportable 04/27/22 10:21 Hemoglobin C Crystals Not Reportable 04/27/22 10:21 Schistocytes Not Reportable 04/27/22 10:21 Malaria parasites Not Reportable 04/27/22 10:21 Cain Bodies Not Reportable 04/27/22 10:21 Hem Pathologist Commnt No 04/27/22 10:21 PT 13.8 Sec. (12.2-14.9) 04/27/22 10:21 INR 0.96 (0.87-1.13) 04/27/22 10:21 Sodium 139 mmol/L (137-145) 04/28/22 06:40 Potassium 4.3 mmol/L (3.6-5.0) 04/28/22 06:40 Chloride 105.0 mmol/L (98-107) 04/28/22 06:40 Carbon Dioxide 24 mmol/L (22-30) 04/28/22 06:40 Anion Gap 14 mmol/L 04/28/22 06:40 BUN 12 mg/dL (9-20) 04/28/22 06:40 Creatinine 1.2 mg/dL (0.8-1.3) 04/28/22 06:40 Estimated GFR > 60 ml/min 04/28/22 06:40 BUN/Creatinine Ratio 10 % 04/28/22 06:40 Glucose 111 mg/dL (75-100) H 04/28/22 06:40 Lactic Acid 1.10 mmol/L (0.7-2.0) 04/28/22 06:40 Calcium 8.6 mg/dL (8.4-10.2) 04/28/22 06:40 Total Bilirubin 0.70 mg/dL (0.1-1.2) 04/27/22 10:21 Direct Bilirubin < 0.2 mg/dL (0-0.2) 04/27/22 10:21 Indirect Bilirubin 0.5 mg/dL 04/27/22 10:21 AST 15 units/L (5-40) 04/27/22 10:21 ALT 31 units/L (7-56) 04/27/22 10:21 Alkaline Phosphatase 62 units/L (35-129) 04/27/22 10:21 Total Protein 9.3 g/dL (6.3-8.2) H 04/27/22 10:21 Albumin 4.2 g/dL (3.9-5) 04/27/22 10:21 Albumin/Globulin Ratio 0.8 % 04/27/22 10:21 Lipase 25 units/L (13-60) 04/27/22 10:21 Urine Color Yellow (Yellow) 04/27/22 Unknown Urine Turbidity Clear (Clear) 04/27/22 Unknown Urine pH 8.0 (5.0-7.0) H 04/27/22 Unknown Ur Specific [place] 1.021 (1.003-1.030) 04/27/22 Unknown Urine Protein <15 mg/dl mg/dL (Negative) 04/27/22 Unknown Urine Glucose (UA) Neg mg/dL (Negative) 04/27/22 Unknown Urine Ketones Neg mg/dL (Negative) 04/27/22 Unknown Urine Blood Neg (Negative) 04/27/22 Unknown Urine Nitrite Neg (Negative) 04/27/22 Unknown Urine Bilirubin Neg (Negative) 04/27/22 Unknown Urine Urobilinogen < 2.0 mg/dL (<2.0) 04/27/22 Unknown Ur Leukocyte Esterase Sm (Negative) 04/27/22 Unknown Urine WBC (Auto) 29.0 /HPF (0.0-6.0) H 04/27/22 Unknown Urine RBC (Auto) 6.0 /HPF (0.0-6.0) 04/27/22 Unknown U Epithel Cells (Auto) 1.0 /HPF (0-13.0) 04/27/22 Unknown Urine Mucus Few /HPF 04/27/22 Unknown Blood Type B POSITIVE 04/27/22 15:20 Antibody Screen Negative 04/27/22 15:20 Microbiology: Microbiology 04/27/22 15:20 Peripheral/Venous Blood Culture - Preliminary Culture in Progress 04/27/22 15:20 Peripheral/Venous Blood Culture - Preliminary Culture in Progress Diamond/IV: Voiding Method Urinal Active Medications - Current Medications Current Medications: Generic Name Dose Route Start Last Admin Trade Name Freq PRN Reason Stop Dose Admin Acetaminophen 650 mg 04/27/22 20:24 Acetaminophen 325 Mg Tab PO Q6H PRN Pain, Mild (1-3) Albuterol 2.5 mg 04/27/22 13:37 Albuterol 2.5 Mg/3 Ml Nebu IH Q4H PRN Shortness Of Breath Hydromorphone HCl 0.25 mg 04/27/22 13:54 Hydromorphone 0.5 Mg/0.5 Ml Inj IV Q4H PRN Pain, Severe (7-10) Hydromorphone HCl 0.5 mg 04/27/22 15:10 Hydromorphone 0.5 Mg/0.5 Ml Inj IV 04/28/22 15:09 Q10MIN PRN Pain , Severe (7-10) Hydromorphone HCl 0.25 mg 04/27/22 20:24 Hydromorphone 0.5 Mg/0.5 Ml Inj IV Q4H PRN Pain, Moderate (4-6) Cefepime HCl 2 gm in 100 mls @ 200 mls/hr 04/27/22 14:00 04/28/22 05:12 Cefepime/Ns 2 Gm/100 Ml IV 200 mls/hr Q8H ALEJANDRINA Administration Protocol Ketorolac Tromethamine 30 mg 04/27/22 20:00 04/28/22 10:51 Ketorolac 30 Mg/1 Ml Inj IV 05/02/22 19:59 30 mg Q6H ALEJANDRINA Administration Morphine Sulfate 2 mg 04/27/22 13:55 Morphine 2 Mg/1 Ml Inj IV Q4H PRN Pain, Moderate (4-6) Ondansetron HCl 4 mg 04/27/22 18:00 Ondansetron 4 Mg/2 Ml Inj IV Q8H PRN Nausea And Vomiting Sodium Chloride 10 ml 04/27/22 22:00 04/28/22 10:54 Sodium Chloride 0.9% 10 Ml Flush Syringe IV 10 ml BID ALEJANDRINA Administration Sodium Chloride 10 ml 04/27/22 13:37 04/28/22 03:03 Sodium Chloride 0.9% 10 Ml Flush Syringe IV 10 ml PRN PRN Administration LINE FLUSH
--- NOTE | 2022-04-28 15:05 | Progress Note ---
Assessment and Plan Postop day #1 status post laparoscopic appendectomy for acute appendicitis. Patient is afebrile and stable with decline in leukocytosis. Okay to be discharged from general surgery perspective. Patient can be discharged to home to advance diet and activity as tolerated. Patient to follow-up in the office with me in 2 weeks. [phone] Subjective Date of service: 04/28/22 Narrative: No acute events overnight. Patient says that the right lower quadrant pain the patient presented with is completely resolved. He has typical postsurgical pain. He denies any nausea or vomiting. Objective Vital Signs - 12hr 04/28/22 05:15 Temperature 98.1 F Pulse Rate 66 Respiratory 18 Rate Blood Pressure 105/60 [Left] O2 Sat by Pulse 99 Oximetry - General physical appearance well developed, no distress, no pain - Eyes PERRL - ENT no hearing loss - Respiratory normal expansion, normal respiratory effort - Abdomen soft, other (Incisions clean dry and intact, appropriately tender to palpation) - Labs 04/28/22 06:40 04/28/22 06:40 Diabetes panel 04/28/22 Range/Units 06:40 Sodium 139 (137-145) mmol/L Potassium 4.3 (3.6-5.0) mmol/L Chloride 105.0 (98-107) mmol/L Carbon Dioxide 24 (22-30) mmol/L BUN 12 (9-20) mg/dL Creatinine 1.2 (0.8-1.3) mg/dL Glucose 111 H (75-100) mg/dL Calcium 8.6 (8.4-10.2) mg/dL Calcium panel 04/28/22 Range/Units 06:40 Calcium 8.6 (8.4-10.2) mg/dL Pituitary panel 04/28/22 Range/Units 06:40 Sodium 139 (137-145) mmol/L Potassium 4.3 (3.6-5.0) mmol/L Chloride 105.0 (98-107) mmol/L Carbon Dioxide 24 (22-30) mmol/L BUN 12 (9-20) mg/dL Creatinine 1.2 (0.8-1.3) mg/dL Glucose 111 H (75-100) mg/dL Calcium 8.6 (8.4-10.2) mg/dL Adrenal panel 04/28/22 Range/Units 06:40 Sodium 139 (137-145) mmol/L Potassium 4.3 (3.6-5.0) mmol/L Chloride 105.0 (98-107) mmol/L Carbon Dioxide 24 (22-30) mmol/L BUN 12 (9-20) mg/dL Creatinine 1.2 (0.8-1.3) mg/dL Glucose 111 H (75-100) mg/dL Calcium 8.6 (8.4-10.2) mg/dL
[2022-04-29] MEDS: KETOROLAC 30 MG/1 ML INJ IV SCH ×2 (02:13→08:00)
[2022-04-29 05:15] VITALS: BP 128/79
[2022-04-29] MEDS: CEFEPIME/NS 2 GM/100 ML 2 GM/100 ML BAG IV SCH (05:15)
[2022-04-29 07:00] LABS: Basophils % (Auto) 0.5 % (0.0-1.8); Eosinophils # (Auto) 0.2 K/mm3 (0.0-0.4); Eosinophils % (Auto) 2.6 % (0.0-4.3); Hematocrit 33.2 % (35.5-45.6); Lymphocytes # (Auto) 1.6 K/mm3 (1.2-5.4); Lymphocytes % (Auto) 18.8 % (13.4-35.0); Mean Corpuscular HGB Conc 33 % (32-34); Mean Corpuscular Volume 85 fl (84-94); Monocytes # (Auto) 0.6 K/mm3 (0.0-0.8); Monocytes % (Auto) 7.5 % (0.0-7.3); Platelet Count 299 K/mm3 (140-440); Red Blood Count 3.91 M/mm3 (3.65-5.03); Red Cell Distribution Width 13.2 % (13.2-15.2)
[2022-04-29 07:26] LABS: BUN/Creatinine Ratio 11; Blood Urea Nitrogen 12 mg/dL (9-20); Calcium 8.3 mg/dL (8.4-10.2); Hemolysis Index 5
--- NOTE | 2022-04-29 07:26 | Discharge Summary ---
Providers - Providers Date of Admission: 04/27/22 13:37 Date of discharge: 04/29/22 Attending physician: ROSANNA VAIL MD 04/27/22 12:44 Consult to Physician [CONS] Stat Comment: Consulting Provider: ASA SILVEIRA Physician Instructions: Reason For Exam: acute appendicitis Primary care physician: JAMI CLARK Hospitalization Reason for admission: abdominal pain Condition: Good Hospital course: History of present illness (per admitting physician): 41 YO Male with Obesity Hypoventilation Syndrome presents to ED for evaluation. Patient reports "my stomach has been hurting". Patient states that over the past 4 days he has experienced right-sided abdominal pain. Patient states that the pain is constant, progressively worsening, radiates to the back into the right testicle, 7/10, worsened with movement, relieved with nonmovement. EMS was notified and upon arrival the patient was found to be in distress and subsequently transported to [facility] for further care and evaluation of the aforementioned symptoms. The patient was seen and evaluated in the emergency department. All lab and imaging studies reviewed. Patient with CT scan of the abdomen and pelvis and was found to have acute appendicitis complicated by sepsis. Patient admitted to medical floor due to increased risk of worsening symptoms. Patient initiated on sepsis protocol. Surgical team consulted in ED. Patient taken urgently to the operating room. Patient denies fever, chills, chest pain, palpitation, adductive cough, skin rash, recent contact, known exposure to COVID-19. No prior admission for review. No medication listed at time of admission for reconciliation. Advanced care planning conducted in ED. Hospital Course: Patient was admitted for right-sided abdominal pain secondary to acute appendicitis. General surgery was consulted on admission and patient was taken urgently to the OR for appendectomy. Patient is status post appendectomy. He will be discharged home with prescription for Percocet. Advised to follow-up outpatient with general surgery in 3 to 5 days. Advised to follow-up with his primary care doctor in 1 to 2 weeks (1) Acute appendicitis Current Visit: Yes Status: Acute Plan to address problem: CT scan abdomen pelvis, serial abdominal exam, IV antibiotic therapy, surgery team consulted. Patient taken urgently to the operating room for surgical intervention. N.p.o., bowel rest, supportive care, pain control. (2) Sepsis POA Current Visit: Yes Status: Acute Plan to address problem: Sepsis protocol: IV fluid resuscitation therapy, IV antibiotic therapy, monitor urine output every shift, monitor fluid balance, serial lactic acid level, chest x-ray, urinalysis, IV antibiotic therapy. (3) Obesity hypoventilation syndrome Current Visit: Yes Status: Acute Plan to address problem: Balanced diet, increase physical activity discharge, outpatient pulmonary follow-up for sleep study. (4) DVT prophylaxis Current Visit: Yes Status: Acute Plan to address problem: SCD to bilateral lower extremities while in bed (5) Right testicular pain Current Visit: Yes Status: Acute Plan to address problem: Empiric IV antibiotic therapy for orchitis, supportive care, testicular ultraso und. (6) Advance care planning Current Visit: Yes Status: Acute Plan to address problem: Disease education conducted, care plan discussed, diagnoses discussed, prognosis discussed, patient is full code. Patient acknowledges understanding and agreement with care plan, +30 minutes. (7) Preventative health care Current Visit: Yes Status: Acute Plan to address problem: Patient counseled regarding balanced diet, increase physical activity at discharge, meal planning. Outpatient follow-up with primary care physician for all age and risk factor of appropriate screening test. Patient counseled regarding risk of HIV disease and infection. Patient counseled regarding safe sex practices. +30 minutes. Disposition: 01 HOME / SELF CARE / HOMELESS Final Discharge Diagnosis (Prints w/discharge instructions): appendicitis Time spent for discharge: 35 Core Measure Documentation - Palliative Care Palliative Care/ Comfort Measures: Not Applicable - Core Measures Any of the following diagnoses?: none Exam - Physical Exam Narrative exam: Physical Exam: VITAL SIGNS: Reviewed. GENERAL: The patient appears normally developed, Vital signs as documented. HEAD: No signs of head trauma. EYES: Pupils are equal. Extraocular motions intact. EARS: Hearing grossly intact. MOUTH: Oropharynx is normal. NECK: No adenopathy, no JVD. CHEST: Chest with clear breath sounds bilaterally. No wheezes, rales, or rhonchi. CARDIAC: Regular rate and rhythm. S1 and S2, without murmurs, gallops, or rubs. VASCULAR: No Edema. Peripheral pulses normal and equal in all extremities. ABDOMEN: Laparoscopic incision scars noted, well-healing. Soft, non tender and non distended. No rebound or guarding, and no masses palpated. Bowel Sounds normal. MUSCULOSKELETAL: Good range of motion of all major joints. Extremities without clubbing, cyanosis or edema. NEUROLOGIC EXAM: Alert and oriented x 4. no focal sensory or strength deficits. PSYCHIATRIC: Mood normal. SKIN: detail exam as documented in skin assessment - Constitutional Vitals: Temp Pulse Resp BP Pulse Ox 99.1 F 79 20 128/79 96 04/29/22 04:32 04/29/22 04:32 04/29/22 04:32 04/29/22 04:32 04/29/22 04:32 Plan Plan of Treatment: Patient was admitted for right-sided abdominal pain secondary to acute appendicitis. General surgery was consulted on admission and patient was taken urgently to the OR for appendectomy. Patient is status post appendectomy. He will be discharged home with prescription for Percocet. Advised to follow-up outpatient with general surgery, Dr Asa Silveira, in 3 to 5 days. Advised to follow-up with his primary care doctor in 1 to 2 weeks Follow up with: JAMI CLARK MD [Primary Care Provider] - 3-5 Days ASA SILVEIRA MD [Staff Physician] - 14 Days Prescriptions: oxyCODONE /ACETAMINOPHEN [Percocet 5/325] 1 tab PO Q8HR PRN 3 Days #9 tablet PRN Reason: Pain
--- NOTE | 2022-04-29 10:19 | Post Anesthesia Evaluation ---
- Post Anesthesia Evaluation Patient Participated: Yes Airway Patent: Yes Stable Respiratory Function: Yes Nausea/Vomiting: No Temp > 96.8F: Yes Pain Manageable: Yes Adequeate Hydration: Yes Anesthesia Complications: No Block Receding Appropriately: Not Applicable Patient on Ventilator: No
== END 2022-04-29 11:40 | disposition home or self-care (01) | DRG 854 ==
LOC: ED 09:49 → 3A 13:37
PROVIDERS: ADMIT Internal Medicine; ATTEND Internal Medicine
PROC: 0DTJ4ZZ Resection of Appendix, Percutaneous Endoscopic Approach (ICD-10-PCS; principal; 2022-04-27)
DX: A41.89 Other specified sepsis (principal); E66.2 Morbid (severe) obesity with alveolar hypoventilation; K35.80 Unspecified acute appendicitis; K36 Other appendicitis; Z82.49 Family history of ischemic heart disease and other diseases of the circulatory system; Z68.35 Body mass index [BMI] 35.0-35.9, adult
CPT/HCPCS: 36415; 74177; 80048; 80076; 81001; 82140; 83690; 85007; 85025; 85610; 86850; 86900; 86901; 87040; 87086; 88304; 93975; G0378; J1815; J3490; J0692; J1170; J1885; J2270; J2405; J2704; J2710; J7030; Q9967